=== PATIENT | female | born 1975 | race Caucasian/White ===

== ENCOUNTER 2022-08-28 17:15 | Emergency (ER) | payer BC ==
[~2022-08-28] VITALS: Ht 162.6 cm; Wt 84.0 kg
[2022-08-28 17:29] VITALS: BP 157/90
[2022-08-28 17:52] LABS: BASOPHILS % 0.5 % (0.0-2.0); EOSINOPHILS % 2.3 % (0.0-5.0); HEMATOCRIT. 38.8 % (36.0-48.0); HEMOGLOBIN. 12.8 g/dL (12.0-16.0); LYMPHOCYTES % 19.2 % (20.0-50.0); MEAN CORPUSCULAR HEMOGLOBIN 25.9 pg (28.0-32.0); MEAN CORPUSCULAR VOLUME 78.3 fL (81.0-99.0); MEAN PLATELET VOLUME 8.1 fl (7.4-10.4); MONOCYTES % 5.7 % (2.0-8.0); NEUTROPHILS % 72.3 % (40.0-76.0); PLATELET 327 x1000/uL (130-400); RED BLOOD CELL COUNT 4.95 mill/uL (4.2-5.4)
[2022-08-28] MEDS ORDERED: LORAZEPAM 1MG TABLET PO ONE (18:00)
[2022-08-28 18:12] LABS: CHLORIDE 103 mEq/L (98-107)
[2022-08-28 18:24] LABS: ETHANOL BLOOD < 10 mg/dL
[2022-08-28] MEDS ORDERED: ONDA4TAB50 MT (20:14)
[2022-08-28] MEDS ORDERED: POTA-203 MT (21:47)
== END 2022-08-28 21:05 | disposition home or self-care (01) ==
LOC: ER 17:15
DX: T40.711A Poisoning by cannabis, accidental (unintentional), initial encounter (principal); E87.6 Hypokalemia; R51.9 Headache, unspecified; I10 Essential (primary) hypertension; Z00.00 Encounter for general adult medical examination without abnormal findings; Z98.890 Other specified postprocedural states; Z86.39 Personal history of other endocrine, nutritional and metabolic disease; Y92.9 Unspecified place or not applicable
CPT/HCPCS: 36415; 80053; 80307; 80320; 80329; 85025; 93005; 99285; G0480